=== PATIENT | female | born 1980 | race Caucasian/White ===

== ENCOUNTER 2020-08-14 21:46 | Emergency (ER) | payer OTHER ==
[2020-08-14 21:53] VITALS: TEMP 98.6; BMI 23.3
[2020-08-14] MEDS ORDERED: SODIUM CHLORIDE 1,000 ML IV STA (22:34)
[2020-08-14] MEDS ORDERED: MAG HYDROX/AL HYDROX/SIMETH -MYLANTA- ORAL SUSPENSION PO ONE (22:34)
[2020-08-14] MEDS ORDERED: FAMOTIDINE 20 MG/50 ML IVPB 20 MG/50 ML MG IVPB ONE ×2 (22:34→22:42)
[2020-08-14] MEDS ORDERED: MAG HYDROX/AL HYDROX/SIMETH 30 ML UNIT-DOSE CUP ONE (22:42)
[2020-08-14 23:15] LABS: EOS % 2.4 % (0-4.5); HEMATOCRIT 38.6 % (32.4-45.2); HEMOGLOBIN 13.6 GM/dL (10.7-15.3); LYMPH % 28.6 % (8-40); MCH 30.3 pg (25.7-33.7); MCHC 35.3 g/dl (32.0-36.0); MEAN CELL VOLUME 85.7 fl (80-96); MEAN PLT VOLUME 9.5 fl (7.5-11.1); MONO % 5.2 % (3.8-10.2); NEUT % 62.8 % (42.8-82.8); PLATELET COUNT 206 K/MM3 (134-434); RDW 14.1 % (11.6-15.6); WHITE BLOOD COUNT 10.1 K/mm3 (4.0-10.0)
[2020-08-14 23:24] LABS: CHLORIDE 109 mmol/L (98-107); SODIUM 141 mmol/L (136-145)
[2020-08-14 23:26] LABS: CALCIUM 8.6 mg/dL (8.5-10.1)
[2020-08-14 23:27] LABS: ANION GAP 7 MMOL/L (8-16); BLOOD UREA NITROGEN 14.4 mg/dL (7-18); CO2 24 mmol/L (21-32); GLUCOSE,RANDOM 92 mg/dL (74-106); LIPASE 145 U/L (73-393)
[2020-08-14 23:29] LABS: SGPT/ALT 20 U/L (13-61)
[2020-08-14 23:30] LABS: CREATININE 0.8 mg/dL (0.55-1.3); SGOT/AST 37 U/L (15-37)
[2020-08-14 23:31] LABS: BILIRUBIN,TOTAL 0.6 mg/dL (0.2-1); TOT PROT 6.8 g/dl (6.4-8.2)
[2020-08-14 23:32] LABS: ALK PHOS 59 U/L (45-117)
[2020-08-15 01:01] VITALS: BP 97/67; PULSE 88
== END 2020-08-15 01:02 | disposition home or self-care (01) ==
LOC: JER 21:46
PROC: 3E033GC Introduction of Other Therapeutic Substance into Peripheral Vein, Percutaneous Approach (ICD-10-PCS; principal; 2020-08-14)
PROC: 3E0337Z Introduction of Electrolytic and Water Balance Substance into Peripheral Vein, Percutaneous Approach (ICD-10-PCS; 2020-08-14)
DX: R10.13 Epigastric pain (principal); D73.4 Cyst of spleen
CPT/HCPCS: 36415; 76700-TC; 80053; 82550; 82553; 83690; 84484; 84703; 85025; 93005; 93010; 99285-25

== ENCOUNTER 2022-03-08 15:28 | Emergency (ER) | payer OTHER ==
[2022-03-08 16:37] VITALS: BMI 23.4
[2022-03-08] MEDS ORDERED: SODIUM CHLORIDE 0.9% 500 ML INFUS.BAG IV ONE (17:25)
[2022-03-08] MEDS ORDERED: PANTOPRAZOLE SODIUM 40 MG VIAL IVPUSH ONE (17:25)
[2022-03-08] MEDS ORDERED: ONDANSETRON 4 MG/2 ML VIAL IVPUSH ONE (17:25)
[2022-03-08] MEDS ORDERED: PANTOPRAZOLE SODIUM 40 MG VIAL ONE (17:55)
[2022-03-08] MEDS ORDERED: ONDANSETRON 4 MG/2 ML VIAL ONE (17:55)
[2022-03-08 18:16] LABS: BASO % 0.4 % (0-2.0); EOS % 1.7 % (0-4.5); HEMATOCRIT 45.6 % (32.4-45.2); HEMOGLOBIN 14.9 GM/dL (10.7-15.3); LYMPH % 25.6 % (8-40); MCH 28.6 pg (25.7-33.7); MCHC 32.8 g/dl (32.0-36.0); MEAN CELL VOLUME 87.2 fl (80-96); MEAN PLT VOLUME 8.9 fl (7.5-11.1); MONO % 4.6 % (3.8-10.2); NEUT % 67.7 % (42.8-82.8); PLATELET COUNT 250 10^3/uL (134-434); RBC 5.22 M/mm3 (3.60-5.2); RDW 13.9 % (11.6-15.6); WHITE BLOOD COUNT 10.6 K/mm3 (4.0-10.0)
[2022-03-08 18:23] LABS: INR 1.17 (0.83-1.09); PROTHROMBIN TIME (PATIENT) 13.5 SEC (9.7-13.0)
[2022-03-08 18:44] LABS: CALCIUM 9.7 mg/dL (8.5-10.1)
[2022-03-08 18:45] LABS: ALBUMIN 4.5 g/dl (3.4-5.0); BLOOD UREA NITROGEN 14.1 mg/dL (7-18)
[2022-03-08 18:47] LABS: CREATININE 0.8 mg/dL (0.55-1.3)
[2022-03-08 18:49] LABS: BILIRUBIN,TOTAL 0.9 mg/dL (0.2-1); TOT PROT 7.7 g/dl (6.4-8.2)
[2022-03-08 20:42] LABS: URINE APPEARANCE CLEAR; URINE BILIRUBIN NEGATIVE (NEGATIVE); URINE COLOR DK YELLOW; URINE GLUCOSE (UA) NEGATIVE (NEGATIVE); URINE KETONE TRACE (NEGATIVE); URINE LEUK ESTERASE NEGATIVE (NEGATIVE); URINE NITRITE NEGATIVE (NEGATIVE); URINE PROTEIN TRACE (NEGATIVE)
[2022-03-08 21:02] VITALS: BP 94/44; PULSE 65; RESP 22; TEMP 98
== END 2022-03-08 23:42 | disposition home or self-care (01) ==
LOC: JER 15:28
PROC: 3E033GC Introduction of Other Therapeutic Substance into Peripheral Vein, Percutaneous Approach (ICD-10-PCS; principal; 2022-03-08)
DX: K29.00 Acute gastritis without bleeding (principal)
CPT/HCPCS: 0241U-QW; 36415; 74177-TC; 76705-TC; 80053; 81003; 83690; 84703; 85025; 85610; 87086; 99285-25; Q9967